=== PATIENT | male | born 1960 | race Caucasian/White ===

== ENCOUNTER 2019-03-20 17:36 | Emergency (ER) | payer MEDICARE, MEDICAID ==
[~2019-03-20] VITALS: Ht 185.4 cm; Wt 134.5 kg
[2019-03-20 18:29] VITALS: BP 155/82
== END 2019-03-20 18:30 | disposition home or self-care (01) ==
LOC: ED 18:24
DX: S51.812A Laceration without foreign body of left forearm, initial encounter (principal); W26.8XXA Contact with other sharp object(s), not elsewhere classified, initial encounter; Y93.89 Activity, other specified; Y92.89 Other specified places as the place of occurrence of the external cause; Y99.8 Other external cause status
CPT/HCPCS: 90471; 90715; 99283

== ENCOUNTER 2019-12-30 09:53 | Emergency (ER) | payer MEDICARE, MEDICAID ==
[~2019-12-30] VITALS: Ht 182.9 cm; Wt 136.0 kg
--- NOTE | 2019-12-30 10:21 | NUR ---
PT BIB [facility] FOR CP, COGH, SOB SINCE THURSDAY, STARTED ON AZITHROMYCIN FOR BRONCHITIS, AND HAS HAD PRODUCTIVE COUGH SINCE NOVEMBER. PT REPORTS HE NORMALLY HAS COUGH BUT IS NOT PRODUCTIVE. PT GIVEN DUONEB AND NITRO FABRICATION WELDER. PT DENIES RELIEF AFTER NITRO. PT ON MONITOR.
[2019-12-30] MEDS ORDERED: KETOROLAC 30 MG/1 ML ONE (10:27)
[2019-12-30] MEDS ORDERED: ACETAMINOPHEN 325 MG TABLET ONE (10:27)
[2019-12-30] MEDS ORDERED: ACETAMINOPHEN 325 MG TABLET PO ONE (10:30)
[2019-12-30] MEDS ORDERED: KETOROLAC 30 MG/1 ML IVPush ONE (10:30)
--- NOTE | 2019-12-30 11:20 | NUR ---
SECOND IV STARTED STARTED HIGHER UP ON FA FOR CTA OF THE CHEST.
[2019-12-30] MEDS ORDERED: CYCLOBENZAPRINE 10 MG TABLET ONE (11:26)
[2019-12-30] MEDS ORDERED: SODIUM CHLORIDE FLUSH 10ML SYR IVF ONE (11:30)
[2019-12-30] MEDS ORDERED: CYCLOBENZAPRINE 10 MG TABLET PO ONE (11:30)
[2019-12-30 11:40] LABS: BASOPHILS # (AUTO) 0.08 x10^3/uL (0-0.1); BASOPHILS % (AUTO) 1 % (0-1); EOSINOPHILS # (AUTO) 0.23 x10^3/uL (0-0.4); EOSINOPHILS % (AUTO) 3 % (1-7); LYMPHOCYTES # (AUTO) 2.35 x10^3/uL (1-3.4); LYMPHOCYTES % (AUTO) 30 % (22-44); MD NO; MEAN CORPUSCULAR HEMOGLOBIN 29.1 pg (27.5-34.5); MEAN CORPUSCULAR HGB CONC 33.6 g/dL (33.2-36.2); MEAN CORPUSCULAR VOLUME 86.6 fL (81-97); MEAN PLATELET VOLUME 6.8 fL (7.4-10.4); MONOCYTES # (AUTO) 0.44 x10^3/uL (0.2-0.8); MONOCYTES % (AUTO) 6 % (2-9); NEUTROPHILS # (AUTO) 4.67 x10^3/uL (1.8-6.8); NEUTROPHILS % (AUTO) 60 % (42-75); PLATELET COUNT 265 x10^3/uL (130-400); RED BLOOD COUNT 6.19 x10^6/uL (4.38-5.82); RED CELL DISTRIBUTION WIDTH 14.3 % (9.4-14.8)
[2019-12-30 11:50] LABS: ALBUMIN 3.7 g/dL (3.4-5.0); ANION GAP 11 mmol/L (5-15); CALCIUM 9.1 mg/dL (8.5-10.1); CHLORIDE 106 mmol/L (98-107)
[2019-12-30 11:55] LABS: CREATININE 0.97 mg/dL (0.7-1.3); TROPONIN I < 0.015 ng/mL (0.000-0.045)
--- NOTE | 2019-12-30 12:02 | NUR ---
RECEIVED REPORT FROM ANTONIO BUENO. ASSUMING CARE AT THIS TIME. AWAITING CTA AT THIS TIME.
--- NOTE | 2019-12-30 12:08 | NUR ---
PT SITTING EDGE OF BED. BILL.
[2019-12-30] MEDS ORDERED: LORazepam 2 MG/ML, 1ML ONE (12:43)
[2019-12-30] MEDS ORDERED: LORazepam 2 MG/ML, 1ML IVPush ONE (13:00)
[2019-12-30 13:19] VITALS: BP 158/109
--- NOTE | 2019-12-30 13:20 | NUR ---
PT SITTING EDGE OF BED. NADN. AWAITING CTA.
--- NOTE | 2019-12-30 13:49 | NUR ---
PT STATES HE IS FEELING MORE RELAXED AFTER ATIVAN. CT TO GET PT.
[2019-12-30] MEDS ORDERED: OMNIPAQUE 350 MG/ML, 150 ML BOTTLE ONE (14:26)
--- NOTE | 2019-12-30 14:41 | NUR ---
ALL RESULTS ARE BACK AT THIS TIME. CHART UP FOR RECHECK.
--- NOTE | 2019-12-30 14:51 | NUR ---
PROVIDER AT BEDSIDE TO UPDATE PT ON POC.
== END 2019-12-30 15:13 | disposition home or self-care (01) ==
LOC: ED 14:20
DX: J44.9 Chronic obstructive pulmonary disease, unspecified (principal); R07.89 Other chest pain; R94.31 Abnormal electrocardiogram [ECG] [EKG]; F17.200 Nicotine dependence, unspecified, uncomplicated
CPT/HCPCS: 36415; 71045; 71275; 80048; 82040; 84484; 85025; 93005; 96374; 96375; 99285; J1885; J2060; Q9967

== ENCOUNTER 2020-05-27 18:33 | Emergency (ER) | payer MEDICARE, MEDICAID ==
[~2020-05-27] VITALS: Ht 185.4 cm; Wt 138.1 kg
--- NOTE | 2020-05-27 18:58 | NUR ---
REPORT RECIEVED FROM MYLES DIAZ. PRECEPTOR IN ROOM TO ATTEMPT IV.
--- NOTE | 2020-05-27 19:19 | NUR ---
PT STATES HAVING COUGH SINCE YESTERDAY, AND IT FEELS LIKE BRONCITIS HE HAS HAD IN THE PAST. PT PLACED ON ALL MONITORS, IV PLACED, SAFETY MEASURES IN PLACE, PT STATES NO ISSUES AT THIS TIME.
[2020-05-27] MEDS ORDERED: ALBUTEROL SULFATE 2.5 MG/3 ML NPPB ONE (20:00)
[2020-05-27 20:03] LABS: BASOPHILS % (AUTO) 2 % (0-1); EOSINOPHILS % (AUTO) 4 % (1-7); LYMPHOCYTES % (AUTO) 34 % (22-44); MEAN CORPUSCULAR HEMOGLOBIN 28.9 pg (27.5-34.5); MEAN PLATELET VOLUME 7.7 fL (7.4-10.4); MONOCYTES % (AUTO) 10 % (2-9); NEUTROPHILS % (AUTO) 50 % (42-75); PLATELET COUNT 263 x10^3/uL (130-400); RED BLOOD COUNT 6.02 x10^6/uL (4.38-5.82); RED CELL DISTRIBUTION WIDTH 14.5 % (9.4-14.8)
[2020-05-27 20:06] LABS: MD NO
[2020-05-27] MEDS ORDERED: ALBUTEROL SULFATE 2.5 MG/3 ML ONE (20:10)
[2020-05-27 20:13] LABS: ALANINE AMINOTRANSFERASE 59 U/L (12-78); ALBUMIN 3.5 g/dL (3.4-5.0); ANION GAP 5 mmol/L (5-15); CALCIUM 8.8 mg/dL (8.5-10.1); CHLORIDE 107 mmol/L (98-107)
[2020-05-27 20:18] LABS: ALKALINE PHOSPHATASE 69 U/L (45-117); BILIRUBIN,TOTAL 0.5 mg/dL (0.2-1.0); CREATININE 0.88 mg/dL (0.7-1.3); TOTAL PROTEIN 7.1 g/dL (6.4-8.2); TROPONIN I < 0.015 ng/mL (0.000-0.045)
[2020-05-27 22:02] VITALS: BP 165/97
== END 2020-05-27 22:11 | disposition home or self-care (01) ==
LOC: ED 19:03
DX: J44.1 Chronic obstructive pulmonary disease with (acute) exacerbation (principal); R94.31 Abnormal electrocardiogram [ECG] [EKG]; F17.200 Nicotine dependence, unspecified, uncomplicated
CPT/HCPCS: 36415; 71045; 80053; 84484; 85025; 93005; 94640; 99285; J7512; J7613

== ENCOUNTER 2021-03-25 00:34 | Emergency (ER) | payer MEDICARE, MEDICAID ==
[~2021-03-25] VITALS: Ht 185.4 cm; Wt 131.0 kg
[2021-03-25 00:38] VITALS: BP 193/103
== END 2021-03-25 01:28 | disposition left against medical advice (07) ==
LOC: ED 01:22
DX: R52 Pain, unspecified (principal); Z53.21 Procedure and treatment not carried out due to patient leaving prior to being seen by health care provider